=== PATIENT | male | born 1980 | race Caucasian/White ===

== ENCOUNTER 2016-11-26 15:46 | Emergency (ER) | payer OTHER ==
[2016-11-26] MEDS ORDERED: LIDOCAINE-MPF 1% 5 ML VIAL ONE (16:15)
== END 2016-11-26 17:01 | disposition home or self-care (01) ==
DX: S61.211A Laceration without foreign body of left index finger without damage to nail, initial encounter (principal); W45.8XXA Other foreign body or object entering through skin, initial encounter; Y93.K1 Activity, walking an animal; Y92.830 Public park as the place of occurrence of the external cause